=== PATIENT | male | born 1950 | race Hispanic/Latino ===

== ENCOUNTER 2019-02-24 23:36 | Emergency (ER) | payer MEDICARE ==
[~2019-02-24] VITALS: Ht 177.8 cm; Wt 108.9 kg
[2019-02-25] MEDS ORDERED: KETOROLAC TROMETHAMINE 30 MG/ML VIAL IV STA (00:10)
--- NOTE | 2019-02-25 00:28 | Diagnostic Imaging Report ---
EXAM: CT Abdomen and Pelvis WITHOUT contrast INDICATION: Left-sided back pain. History of gastritis. ^[id number] ^[id number] COMPARISON: None. TECHNIQUE: Abdomen and pelvis were scanned utilizing a multidetector helical scanner from the lung base to the pubic symphysis without administration of IV contrast. Absence of intravenous contrast decreases sensitivity for detection of focal lesions and vascular pathology. Coronal and sagittal reformations were obtained. Routine protocol was performed. IV CONTRAST: None ORAL CONTRAST: Water COMPLICATIONS: None RADIATION DOSE: Total DLP: 799.85 mGy*cm Estimated effective dose: (DLP x 0.015 x size factor) mSv CTDIvol has been reviewed. It is below the limits set by the Radiation Protocol Committee (RPC). Dose modulation, iterative reconstruction, and/or weight based adjustment of the mA/kV was utilized to reduce the radiation dose to as low as reasonably achievable. FINDINGS: LINES and TUBES: None. LOWER THORAX: Unremarkable HEPATOBILIARY: No focal hepatic lesions. No biliary ductal dilation. GALLBLADDER: There are stones in the gallbladder. No wall thickening. SPLEEN: No splenomegaly. PANCREAS: No focal masses or ductal dilatation. ADRENALS: No adrenal nodules KIDNEYS/URETERS: No hydronephrosis. No cystic or solid mass lesions. No stones. GI TRACT: No abnormal distention, wall thickening, or evidence of bowel obstruction. There are diverticula within the colon without evidence of diverticulitis. Appendix is normal. PELVIC ORGANS/BLADDER: Unremarkable. LYMPH NODES: No lymphadenopathy. VESSELS: Unremarkable. PERITONEUM / RETROPERITONEUM: No free air or fluid. BONES: Unremarkable. SOFT TISSUES: Fat-containing right inguinal hernia. Bilateral varicoceles. IMPRESSION: 1. Cholelithiasis. 2. No renal stones. No hydronephrosis. Signed by: Dr. Jayden Cruz M.D. on 02/25/2019 12:25 AM
== END 2019-02-25 01:10 | disposition home or self-care (01) ==
LOC: FSED 23:36
DX: M54.5 Low back pain (principal); S39.012A Strain of muscle, fascia and tendon of lower back, initial encounter; K21.9 Gastro-esophageal reflux disease without esophagitis
CPT/HCPCS: 74176; 80053; 81003; 85025; 99283

== ENCOUNTER 2024-05-24 13:05 | Emergency (ER) | payer MEDICARE ==
[~2024-05-24] VITALS: Ht 177.8 cm; Wt 108.9 kg
[2024-05-24 13:57] VITALS: TEMP 99.9
[2024-05-24 14:23] LABS: BASOPHILS % 0.2 % (0.0-1.0); EOSINOPHILS % 0.1 % (0.0-6.0); HEMATOCRIT 44.2 % (38.2-49.6); HEMOGLOBIN 14.9 g/dL (14.0-18.0); LYMPHOCYTES # (AUTO) 0.4 (1.0-3.2); LYMPHOCYTES % 2.9 % (18.0-39.1); MEAN CORPUSCULAR HEMOGLOBIN 31.7 pg (28-32); MEAN CORPUSCULAR HGB CONC 33.7 g/dL (31-35); MONOCYTES # (AUTO) 0.6 (0.2-0.8); MONOCYTES % 4.9 % (4.4-11.3); NEUTROPHILS # (AUTO) 11.8 (2.1-6.9); NEUTROPHILS % 91.6 % (38.7-80.0); PLATELET COUNT 174 x10e3/uL (140-360); WHITE BLOOD COUNT 12.89 x10e3/uL (4.8-10.8)
[2024-05-24] MEDS: ONDANSETRON HCL INJ 2MG/ML 2ML 2 MG/ML VIAL IV PRN (14:31)
[2024-05-24] MEDS: SODIUM CHLORIDE 0.9% 1000ML 1,000 ML IV STA (14:31)
[2024-05-24] MEDS: BELLADONNA ALK/PHENOBARBITAL 5 ML UDC PO STA (14:32)
[2024-05-24] MEDS: MAGNESIUM/ALUMINUM/SIMETHICONE 30 ML UDC PO ONE (14:32)
[2024-05-24] MEDS: LIDOCAINE VISC 2% SOLN 15 ML UDC PO ONE (14:32)
[2024-05-24] MEDS: DICYCLOMINE HCL 20 MG/2 ML VIAL IM ONE (14:32)
[2024-05-24 14:41] LABS: BILIRUBIN,URINE NEGATIVE (NEGATIVE); CLARITY,URINE CLEAR (CLEAR); COLOR,URINE YELLOW (YELLOW); GLUCOSE, URINE NEGATIVE (NEGATIVE); KETONES,URINE TRACE (NEGATIVE); LEUKOCYTE ESTERASE ,URINE NEGATIVE (NEGATIVE); NITRITE,URINE NEGATIVE (NEGATIVE); PH,URINE 5.5 (5 - 7); PROTEIN,URINE DIPSTICK 2+ (NEGATIVE); URINE UROBILINOGEN 0.2 mg/dL (0.2 - 1)
[2024-05-24 14:43] LABS: ALBUMIN 4.5 g/dL (3.5-5.0); ALBUMIN/GLOBULIN RATIO 1.8 (0.8-2.0); ANION GAP 13.1 mmol/L (8-16); BILIRUBIN,TOTAL 0.6 mg/dL (0.2-1.2); CALCIUM 9.3 mg/dL (8.4-10.2); CREATININE, SERUM 0.95 mg/dL (0.72-1.25)
[2024-05-24 14:44] VITALS: PULSE 92; RESP 15
[2024-05-24 14:45] LABS: POTASSIUM 3.1 mmol/L (3.5-5.1)
[2024-05-24] MEDS ORDERED: IOPAMIDOL 370 MG/ML 100 ML INFUS..BTL INJ ONE (14:56)
[2024-05-24 14:57] LABS: BACTERIA,URINE FEW /HPF; EPITHELIAL CELLS,URINE FEW /LPF; MUCUS,URINE MANY (RARE); WBC,URINE (MAN) 0-5 /HPF (0-5)
[2024-05-24] MEDS ORDERED: ONDANSETRON ODT4 MG PO (15:49)
[2024-05-24] MEDS ORDERED: DICYCLOMINE HCL20 MG PO (15:49)
[2024-05-24 16:09] VITALS: BP 123/91; PULSE 88; RESP 16; O2SAT 96
== END 2024-05-24 16:07 | disposition home or self-care (01) ==
LOC: ER 13:14
DX: R50.9 Fever, unspecified (principal); R11.2 Nausea with vomiting, unspecified; R10.30 Lower abdominal pain, unspecified; K21.9 Gastro-esophageal reflux disease without esophagitis; R19.7 Diarrhea, unspecified
CPT/HCPCS: 36415; 74177; 80053; 81001; 83690; 84484; 85025; 93005; 99284; C9113; J0500; J2405; J7030; Q9967; J2470